=== PATIENT | male | born 1970 | race Two or more races ===

== ENCOUNTER 2018-05-04 00:46 | Emergency (ER) | payer OTHER ==
[~2018-05-04] VITALS: Ht 175.3 cm; Wt 72.6 kg
[2018-05-04 01:02] VITALS: Ht 175.3 cm; Wt 72.6 kg
[2018-05-04 07:15] VITALS: BP 102/57
== END 2018-05-04 10:40 | disposition home or self-care (01) ==
LOC: ED 00:46
DX: F10.129 Alcohol abuse with intoxication, unspecified (principal)
CPT/HCPCS: G0480; J0780; J1200; J7030